=== PATIENT | female | born 1995 | race Caucasian/White ===

== ENCOUNTER 2016-04-12 14:19 | Emergency (ER) | payer OTHER ==
[~2016-04-12 14:19] MED LIST: BENZ200C39 PO; NAPR550T PO; PNV1TABL25 PO
[2016-04-12 14:20] VITALS: BP 115/72
[2016-04-12] MEDS ORDERED: AMOX500C PO (15:35)
[2016-04-12] MEDS ORDERED: HYDR15SO4 PO (15:35)
--- NOTE | 2016-04-12 15:35 | PHYS DOC ---
Past Medical History Past Medical History: No Pertinent History Past Surgical History: No Surgical History Additional Past Surgical Histo: oral Alcohol Use: Occasionally Drug Use: None Adult General Chief Complaint Chief Complaint: SORE THROAT [facility] HPI Patient is a 20 year old female with complaint of atraumatic sore throat for the past week. Patient denies any direct contact with anyone with strep or mononucleosis. She denies any antibiotic use in the past 30 days. Of incidental note, patient complains of chronic back pain is been progressive over the past 6 months. Reports this is atraumatic. Patient states that she has not followed up with a primary care doctor or orthopedic doctor since that period of time. Review of Systems Review of Systems Constitutional: Denies fever or chills [] Eyes: Denies change in visual acuity, redness, or eye pain [] HENT: Denies nasal congestion or sore throat [] Respiratory: Denies cough or shortness of breath [] Cardiovascular: No additional information not addressed in HPI [] GI: Denies abdominal pain, nausea, vomiting, bloody stools or diarrhea [] : Denies dysuria or hematuria [] Musculoskeletal: Denies back pain or joint pain [] Integument: Denies rash or skin lesions [] Neurologic: Denies headache, focal weakness or sensory changes [] Endocrine: Denies polyuria or polydipsia [] Allergies Allergies Allergies Coded Allergies Type Severity Reaction Last Updated Verified No Known Drug Allergies 08/13/14 No Physical Exam Physical Exam Constitutional: Well developed, well nourished, no acute distress, non-toxic appearance. [] HENT: Normocephalic, atraumatic, bilateral external ears normal, oropharynx moist, no oral exudates, nose normal. There is no hot potato speech or trismus. Posterior oropharynx is hyperemic. There are exudative plaques to the right tonsil. There is minimal tonsillar swelling. There is no peritonsillar swelling or uvular Eyes: PERRLA, EOMI, conjunctiva normal, no discharge. [] Neck: Normal range of motion, no tenderness, supple, no stridor. There is no meningismus. There is bilateral anterior cervical lymphadenopathy. Cardiovascular:Heart rate regular rhythm, no murmur [] Lungs & Thorax: Bilateral breath sounds clear to auscultation [] Abdomen: Bowel sounds normal, soft, no tenderness, no masses, no pulsatile masses. [] Skin: Warm, dry, no erythema, no rash. [] Back: No tenderness, no CVA tenderness. [] Extremities: No tenderness, no cyanosis, no clubbing, ROM intact, no edema. [] Neurologic: Alert and oriented X 3, normal motor function, normal sensory function, no focal deficits noted. [] Psychologic: Affect normal, judgement normal, mood normal. [] Current Patient Data Vital Signs Vital Signs Date Time Temp Pulse Resp B/P Pulse Ox O2 Delivery O2 Flow Rate FiO2 04/12/16 14:20 97.6 78 18 100 Room Air 97.6 EKG EKG [] Radiology/Procedures Radiology/Procedures [] Course & Med Decision Making Course & Med Decision Making Pertinent Labs and Imaging studies reviewed. (See chart for details) [] Dragon Disclaimer Dragon Disclaimer This electronic medical record was generated, in whole or in part, using a voice recognition dictation system. Departure Departure Impression: Primary Impression: Strep pharyngitis Additional Impression: Chronic back pain Disposition: HOME, SELF-CARE Condition: GOOD Referrals: NO PCP (PCP) Patient Instructions: Chronic Back Pain, Strep Throat, [id number] Additional Instructions: 1. Take the medication as prescribed. 2. Review the discharge instructions for reasons to return to the emergency room. 3. Use the pamphlet provided for assistance in finding a primary care doctor to address your medical concerns. Scripts Hydrocodone Bit/Acetaminophen (Hydrocodone-Apap 7.5-325/15 Soln )15 Ml Cuoryxsi20 Ml PO PRN Q6HRS PRN PAIN #120 ML Ref 0 Prov:ALVERTO WEBER 04/12/16 Amoxicillin 500 Mg Capsule1 Cap PO TID #30 CAP Prov:ALVERTO WEBER 04/12/16 Problem Qualifiers ALVERTO WEBER Apr 12, 2016 15:35
[2016-04-13 08:18] LABS: NEGATIVE OBC STREP NEG; POSITIVE OBC STREP POS
== END 2016-04-12 15:44 | disposition home or self-care (01) ==
LOC: ER 14:19
DX: J02.0 Streptococcal pharyngitis (principal); G89.29 Other chronic pain; M54.9 Dorsalgia, unspecified
CPT/HCPCS: 87880; 99283

== ENCOUNTER 2016-05-30 15:18 | Emergency (ER) | payer OTHER ==
[~2016-05-30] VITALS: Ht 157.5 cm; Wt 45.4 kg
[~2016-05-30 15:18] MED LIST changes: +AMOX500C PO; +HYDR15SO4 PO
[2016-05-30 15:37] VITALS: BP 113/60
--- NOTE | 2016-05-30 15:56 | PHYS DOC ---
Past Medical History Past Medical History: No Pertinent History, Asthma Past Surgical History: No Surgical History Additional Past Surgical Histo: oral Alcohol Use: Occasionally Drug Use: None Adult General Chief Complaint Chief Complaint: Congestion HPI HPI Patient is a 20 year old female presents emergency room today with a 4 day history of nasal congestion, nonproductive cough, subjective fevers and chills and body aches. Patient denies any ill contacts with similar symptoms. She denies hospitalization, foreign travel or antibiotic use within the past 90 days. Patient denies any history of heart or lung disease. Patient states she is a nonsmoker. Review of Systems Review of Systems Constitutional: Denies fever or chills [] Eyes: Denies change in visual acuity, redness, or eye pain [] HENT: Denies nasal congestion or sore throat [] Respiratory: Denies cough or shortness of breath [] Cardiovascular: No additional information not addressed in HPI [] GI: Denies abdominal pain, nausea, vomiting, bloody stools or diarrhea [] : Denies dysuria or hematuria [] Musculoskeletal: Denies back pain or joint pain [] Integument: Denies rash or skin lesions [] Neurologic: Denies headache, focal weakness or sensory changes [] Endocrine: Denies polyuria or polydipsia [] Current Medications Current Medications Current Medications Medications (Trade) Dose Ordered Sig/Norbert Start Time Stop Time Status Last Admin Dose Admin Ibuprofen (Motrin) 600 mg 1X ONCE 05/30/16 16:15 05/30/16 16:16 DC 05/30/16 16:09 600 MG Allergies Allergies Allergies Coded Allergies Type Severity Reaction Last Updated Verified No Known Drug Allergies 08/13/14 No Physical Exam Physical Exam Constitutional: Well developed, well nourished, no acute distress, non-toxic appearance. HENT: Normocephalic, atraumatic, bilateral external ears normal, oropharynx moist, no oral exudates, scant clear rhinorrhea with boggy nasal mucosa.. Eyes: PERRLA, EOMI, conjunctiva normal, no discharge. [] Neck: Normal range of motion, no tenderness, supple, no stridor. There is no meningismus. There is bilateral anterior and posterior cervical lymphadenopathy. Cardiovascular:Heart rate 98 with regular rhythm, no murmur Lungs & Thorax: There is no respiratory distress respiratory fatigue. Lung sounds are clear to auscultation bilaterally. Abdomen: Bowel sounds normal, soft, no tenderness, no masses, no pulsatile masses. [] Skin: Warm, dry, no erythema, no rash. Back: No tenderness, no CVA tenderness. [] Extremities: No tenderness, no cyanosis, no clubbing, ROM intact, no edema. [] Neurologic: Alert and oriented X 3, normal motor function, normal sensory function, no focal deficits noted. [] Psychologic: Affect normal, judgement normal, mood normal. [] Current Patient Data Vital Signs Vital Signs Date Time Temp Pulse Resp B/P Pulse Ox O2 Delivery O2 Flow Rate FiO2 05/30/16 15:37 99.4 106 18 113/60 98 Room Air 99.4 Lab Values Laboratory Tests Test 05/30/16 15:37 Influenza Type A Antigen Negative (NEGATIVE) Influenza Type B Antigen Positive (NEGATIVE) EKG EKG [] Radiology/Procedures Radiology/Procedures [] Course & Med Decision Making Course & Med Decision Making Pertinent Labs and Imaging studies reviewed. (See chart for details) [] Dragon Disclaimer Dragon Disclaimer This electronic medical record was generated, in whole or in part, using a voice recognition dictation system. Departure Departure Impression: Primary Impression: Influenza Disposition: HOME, SELF-CARE Condition: GOOD Referrals: NO PCP (PCP) Patient Instructions: Influenza, Adult, [id number] Additional Instructions: 1. You tested positive for influenza B. 2. Review the discharge instructions for self-care and reasons to return the emergency department. 3. Take the medication as prescribed. 4. Use the pamphlet provided for assistance in finding a primary care doctor to address your medical concerns. Scripts Hydrocodone/Chlorphen Polis (Tussionex Pennkinetic Susp)480 Ml Pallavi.[id number] Ml PO BID COUGH #120 ML Prov:ALVERTO WEBER 05/30/16 ALVERTO WEBER May 30, 2016 15:56
[2016-05-30] MEDS ORDERED: IBUPROFEN 600 MG TABLET. PO ONE (16:15)
[2016-05-30 16:21] LABS: OBC FLU VALID
[2016-05-30] MEDS ORDERED: HYDR115S2 PO (16:33)
== END 2016-05-30 16:34 | disposition home or self-care (01) ==
LOC: ER 15:18
DX: J10.1 Influenza due to other identified influenza virus with other respiratory manifestations (principal); J45.909 Unspecified asthma, uncomplicated
CPT/HCPCS: 87804; 99284

== ENCOUNTER 2016-07-12 20:58 | Emergency (ER) | payer OTHER ==
[~2016-07-12] VITALS: Ht 157.5 cm; Wt 45.4 kg
[~2016-07-12 20:58] MED LIST changes: +HYDR115S2 PO
[2016-07-12 21:08] VITALS: BP 105/57
--- NOTE | 2016-07-12 21:27 | PHYS DOC ---
Past Medical History Past Medical History: No Pertinent History Past Surgical History: No Surgical History Additional Past Surgical Histo: oral Additional Information: 1 PACK/2 WKS Alcohol Use: None Drug Use: None Adult General Chief Complaint Chief Complaint: WRIST PAIN [facility] HPI Patient is a 20 year old female presents emergency Department today with complaint of right wrist pain secondary to a slip and fall at home at approximately 4 PM today. Patient denies striking her head, loss of consciousness or other injuries. She denies any previous fractures or dislocations to right wrist. She denies any history of bone forming disorders. Patient is right-hand dominant. Review of Systems Review of Systems Constitutional: Denies fever or chills [] Eyes: Denies change in visual acuity, redness, or eye pain [] HENT: Denies nasal congestion or sore throat [] Respiratory: Denies cough or shortness of breath [] Cardiovascular: No additional information not addressed in HPI [] GI: Denies abdominal pain, nausea, vomiting, bloody stools or diarrhea [] : Denies dysuria or hematuria [] Musculoskeletal: Denies back pain or joint pain [] Integument: Denies rash or skin lesions [] Neurologic: Denies headache, focal weakness or sensory changes [] Endocrine: Denies polyuria or polydipsia [] Allergies Allergies Allergies Coded Allergies Type Severity Reaction Last Updated Verified No Known Drug Allergies 08/13/14 No Physical Exam Physical Exam Constitutional: Well developed, well nourished, no acute distress, non-toxic appearance. [] HENT: Normocephalic, atraumatic, bilateral external ears normal, oropharynx moist, no oral exudates, nose normal. [] Eyes: PERRLA, EOMI, conjunctiva normal, no discharge. [] Neck: Normal range of motion, no tenderness, supple, no stridor. [] Cardiovascular:Heart rate regular rhythm, no murmur [] Lungs & Thorax: Bilateral breath sounds clear to auscultation [] Abdomen: Bowel sounds normal, soft, no tenderness, no masses, no pulsatile masses. [] Skin: Warm, dry, no erythema, no rash. [] Back: No tenderness, no CVA tenderness. [] Extremities: Right hand is normal in appearance and nontender to palpation. Right wrist with a small amount of swelling and a contusion overlying the distal ulna/ulnar styloid region. There is no palpable instability or crepitus. Patient has no tenderness anywhere else in her wrist. Patient's right forearm, elbow, upper arm and shoulder are unaffected. Right hand is neurovascularly intact with capillary refill less than 2 seconds. Neurologic: Alert and oriented X 3, normal motor function, normal sensory function, no focal deficits noted. [] Psychologic: Affect normal, judgement normal, mood normal. [] Current Patient Data Vital Signs Vital Signs Date Time Temp Pulse Resp B/P Pulse Ox O2 Delivery O2 Flow Rate FiO2 07/12/16 21:08 98.1 81 18 99 Room Air 98.1 EKG EKG [] Radiology/Procedures Radiology/Procedures 3 views of patient's right wrist were performed with adequate technique. There is no evidence of acute bony injury or dislocation. Course & Med Decision Making Course & Med Decision Making Pertinent Labs and Imaging studies reviewed. (See chart for details) [] Dragon Disclaimer Dragon Disclaimer This electronic medical record was generated, in whole or in part, using a voice recognition dictation system. Departure Departure Impression: Primary Impression: Wrist sprain Disposition: 01 HOME, SELF-CARE Condition: GOOD Referrals: NO PCP (PCP) Patient Instructions: Joint Sprain Additional Instructions: 1. The x-rays of your wrist today are normal. 2. Wear the splint during periods of activity. You can take it off her personal hygiene and periods of rest. Do this for the next 5-7 days. 3. Take ibuprofen every 8 hours or naproxen every 12 hours for the discomfort. You can apply ice every 2 hours for 20-30 minutes at a time. 4. Contact primary care doctor's office in the morning to schedule follow-up appointment. ALVERTO WEBER Jul 12, 2016 21:27
[2016-07-12] MEDS ORDERED: IBUPROFEN 600 MG TABLET. PO ONE (22:15)
--- NOTE | 2016-07-13 08:14 | RAD ---
Right wrist, 3 views, 07/12/2016: History: Fall, pain No fracture or dislocation is identified. There is mild soft tissue swelling. IMPRESSION: No acute bony abnormality is detected.
== END 2016-07-12 22:01 | disposition home or self-care (01) ==
LOC: ER 20:58
DX: S63.501A Unspecified sprain of right wrist, initial encounter (principal); F17.200 Nicotine dependence, unspecified, uncomplicated; W01.0XXA Fall on same level from slipping, tripping and stumbling without subsequent striking against object, initial encounter; Y93.89 Activity, other specified; Y92.009 Unspecified place in unspecified non-institutional (private) residence as the place of occurrence of the external cause; Y99.8 Other external cause status
CPT/HCPCS: 29125; 73110; 99284-25

== ENCOUNTER 2016-08-29 12:16 | Emergency (ER) | payer OTHER ==
[~2016-08-29] VITALS: Ht 157.5 cm; Wt 45.4 kg
[2016-08-29 12:39] VITALS: BP 96/62
[2016-08-29] MEDS ORDERED: AMOX500C PO (13:01)
[2016-08-29] MEDS ORDERED: TRAM-29 PO (13:01)
--- NOTE | 2016-08-29 13:01 | PHYS DOC ---
Past Medical History Past Medical History: No Pertinent History Past Surgical History: Other Additional Past Surgical Histo: oral Alcohol Use: None Drug Use: None Adult General Chief Complaint Chief Complaint: DENTAL PROBLEM HPI HPI Patient is a 20 year old female presents emergency department stating that she is having bilateral lower back dental pain. She states that she has had some nausea feeling and felt as though she hasn't been feeling well. She denies any fever, chills or any nausea vomiting. She states the pain is been going on for the approximately one week where she has been taking Tylenol and ibuprofen with no relief. Patient states that she does not have a dentist to follow-up with. Patient states last menstrual period was approximately one month ago. Review of Systems Review of Systems Constitutional: Denies fever or chills [] Eyes: Denies change in visual acuity, redness, or eye pain [] HENT: Denies nasal congestion or sore throat. C/o bilateral lower back dental pain Respiratory: Denies cough or shortness of breath [] Cardiovascular: No additional information not addressed in HPI [] GI: Denies abdominal pain, nausea, vomiting, bloody stools or diarrhea [] : Denies dysuria or hematuria [] Musculoskeletal: Denies back pain or joint pain [] Integument: Denies rash or skin lesions [] Neurologic: Denies headache, focal weakness or sensory changes [] Endocrine: Denies polyuria or polydipsia [] Allergies Allergies Allergies Coded Allergies Type Severity Reaction Last Updated Verified No Known Drug Allergies 08/13/14 No Physical Exam Physical Exam Constitutional: Well developed, well nourished, no acute distress, non-toxic appearance. [] HENT: Normocephalic, atraumatic, bilateral external ears normal, oropharynx moist, no oral exudates, nose normal. Bilateral tympanic membranes appear to be normal. Throat with no erythematous no redness noted exudate noted. Patient appears to have abscesses on bilateral lower back areas. Eyes: PERRLA, EOMI, conjunctiva normal, no discharge. [] Neck: Normal range of motion, no tenderness, supple, no stridor. [] Cardiovascular:Heart rate regular rhythm, no murmur [] Lungs & Thorax: Bilateral breath sounds clear to auscultation [] Skin: Warm, dry, no erythema, no rash. [] Back: No tenderness Extremities: No tenderness, no cyanosis, no clubbing, ROM intact, no edema. [] Neurologic: Alert and oriented X 3, normal motor function, normal sensory function, no focal deficits noted. [] Psychologic: Affect normal, judgement normal, mood normal. [] Current Patient Data Vital Signs Vital Signs Date Time Temp Pulse Resp B/P (MAP) Pulse Ox O2 Delivery O2 Flow Rate FiO2 08/29/16 12:39 98.5 71 16 98 Room Air 98.5 EKG EKG [] Radiology/Procedures Radiology/Procedures [] Course & Med Decision Making Course & Med Decision Making Pertinent Labs and Imaging studies reviewed. (See chart for details) Patient will be provided with Ultram and amoxicillin. She was also instructed continue to use ibuprofen. She was instructed Ultram will cause drowsiness do not take any be alert and oriented. She'll be provided with a dental list. Patient was instructed to use warm salt water rinses 4 times a day. Patient will be discharged home in stable condition signs symptoms to return back to emergency department as been provided. [] Dragon Disclaimer Dragon Disclaimer This electronic medical record was generated, in whole or in part, using a voice recognition dictation system. Departure Departure Impression: Primary Impression: Dental abscess Additional Impression: Pain, dental Disposition: 01 HOME, SELF-CARE Condition: STABLE Referrals: NO PCP (PCP) Patient Instructions: Dental Abscess, Dental Pain, [id number] Additional Instructions: Activity as tolerated. Medication as prescribed. Ibuprofen 600 mg every 8 hours with food stop taking few develop an upset stomach. Ultram will cause drowsiness do not take any be alert and oriented. Warm salt water mouth rinses 4 times a day. Follow-up with the dentist in the next week. Return back to emergency prior signs symptoms of become worse. Scripts Tramadol Hcl (ULTRAM) 50 Mg Tablet 1 TAB PO Q6HRS, #15 TAB Prov: JORY BELTRAN APRN 08/29/16 Amoxicillin (AMOXICILLIN) 500 Mg Capsule 1 CAP PO QID, #40 CAP Prov: JORY BELTRAN [employer]PER [employer]ER 08/29/16 Problem Qualifiers JORY BELTRAN APRN August 29, 2016 13:01
== END 2016-08-29 13:18 | disposition home or self-care (01) ==
LOC: ER 13:00
DX: K04.7 Periapical abscess without sinus (principal)
CPT/HCPCS: 99283

== ENCOUNTER 2016-09-04 19:54 | Emergency (ER) | payer OTHER ==
[~2016-09-04] VITALS: Ht 157.5 cm; Wt 45.4 kg
[~2016-09-04 19:54] MED LIST changes: +TRAM-29 PO
[2016-09-04 20:15] VITALS: BP 109/53
[2016-09-04] MEDS ORDERED: METHOCARBAMOL 500 MG TABLET PO STA (20:27)
[2016-09-04] MEDS ORDERED: traMADol 50 MG TABLET PO ONE (20:45)
[2016-09-04] MEDS ORDERED: TRAM-29 PO (21:03)
[2016-09-04] MEDS ORDERED: METH-37 PO (21:03)
--- NOTE | 2016-09-04 21:03 | PHYS DOC ---
Past Medical History Past Medical History: No Pertinent History Past Surgical History: Other Additional Past Surgical Histo: oral Alcohol Use: None Drug Use: None Adult General Chief Complaint Chief Complaint: LOWER BACK PAIN OR INJURY HPI HPI Patient is a 20 year old female with no significant medical history who presents today with mild intermittent low back pain that has been going on for 1 -1/2 years after an epidural when she had a baby. Patient denies any trauma. Denies any pain radiating to bilateral lower extremities. Denies any loss of bowel bladder function. Review of Systems Review of Systems Constitutional: Denies fever or chills [] Eyes: Denies change in visual acuity, redness, or eye pain [] GI: Denies abdominal pain, nausea, vomiting, bloody stools or diarrhea [] : Denies dysuria or hematuria [] Musculoskeletal: Low back pain Integument: Denies rash or skin lesions [] Neurologic: Denies headache, focal weakness or sensory changes [] Endocrine: Denies polyuria or polydipsia [] Current Medications Current Medications Current Medications Medications (Trade) Dose Ordered Sig/Norbert Start Time Stop Time Status Last Admin Dose Admin Methocarbamol (Robaxin) 500 mg 1X STAT 09/04/16 20:27 09/04/16 20:31 DC Tramadol HCl (Ultram) 50 mg 1X ONCE 09/04/16 20:45 09/04/16 20:46 DC Allergies Allergies Allergies Coded Allergies Type Severity Reaction Last Updated Verified No Known Drug Allergies 08/13/14 No Physical Exam Physical Exam Constitutional: Well developed, well nourished, no acute distress, non-toxic appearance. [] HENT: Normocephalic, atraumatic, bilateral external ears normal, oropharynx moist, no oral exudates, nose normal. [] Abdomen: Bowel sounds normal, soft, no tenderness, no masses, no pulsatile masses. [] Skin: Warm, dry, no erythema, no rash. [] Back: Diffuse paraspinal muscle tenderness bilateral low lumbar region, no midline lumbar spine tenderness, no CVA tenderness. [] Extremities: No tenderness, no cyanosis, no clubbing, ROM intact, no edema. [] Neurologic: Alert and oriented X 3, normal motor function, normal sensory function, no focal deficits noted. [] Psychologic: Affect normal, judgement normal, mood normal. [] Current Patient Data Vital Signs Vital Signs Date Time Temp Pulse Resp B/P (MAP) Pulse Ox O2 Delivery O2 Flow Rate FiO2 09/04/16 20:15 98.1 66 18 98 Room Air 98.1 EKG EKG [] Radiology/Procedures Radiology/Procedures [] Course & Med Decision Making Course & Med Decision Making Pertinent Labs and Imaging studies reviewed. (See chart for details) Patient is in the ED with exacerbation of chronic low back pain that she's had for 1-1/2 years after an epidural. Patient was discharged with Robaxin and Ultram. Follow-up with her own PCP in 1-2 weeks. Dragon Disclaimer Dragon Disclaimer This electronic medical record was generated, in whole or in part, using a voice recognition dictation system. Departure Departure Impression: Primary Impression: Chronic back pain Disposition: HOME, SELF-CARE Condition: STABLE Referrals: NO PCP (PCP) Establish care with a primary care doctor and follow-up Patient Instructions: Back Pain, Adult Additional Instructions: You were seen for ongoing back pain. We highly recommend you establish care with a primary care doctor and follow-up. Take the prescribed medicines as needed. Scripts Methocarbamol (ROBAXIN) 500 Mg Tablet 1 TAB PO TID, #30 TAB Prov: KIRA ACKERMAN APRN 09/04/16 Tramadol Hcl (ULTRAM) 50 Mg Tablet 50 MG PO Q6H Y for PAIN, #30 TAB 0 Refills Prov: KIRA ACKERMAN APRN 09/04/16 Problem Qualifiers Primary Impression: Chronic back pain Back pain location: low back pain Back pain laterality: bilateral Sciatica presence: without sciatica Qualified Codes: M54.5 - Low back pain; G89.29 - Other chronic pain KIRA ACKERMAN APRN September 04, 2016 21:03
== END 2016-09-04 21:06 | disposition home or self-care (01) ==
LOC: ER 19:54
DX: G89.29 Other chronic pain (principal); M54.5 Low back pain
CPT/HCPCS: 99283

== ENCOUNTER 2016-09-21 11:51 | Emergency (ER) | payer OTHER ==
[~2016-09-21] VITALS: Ht 157.5 cm; Wt 45.8 kg
[~2016-09-21 11:51] MED LIST changes: -BENZ200C39 PO; +BENZ200C47 PO; +METH-37 PO; -TRAM-29 PO; +TRAM-48 PO
[2016-09-21 12:05] VITALS: BP 104/54
[2016-09-21] MEDS ORDERED: CYCL10TA2 PO (12:34)
--- NOTE | 2016-09-21 12:34 | PHYS DOC ---
Past Medical History Past Medical History: Other Additional Past Medical Histor: CHRONIC LOWER BACK PAIN Past Surgical History: Other Additional Past Surgical Histo: oral Alcohol Use: None Drug Use: None Adult General Chief Complaint Chief Complaint: LOWER BACK PAIN OR INJURY [facility] HPI Patient is a 20 year old female presents emergency department stating that she is having left lower back pain and discomfort. She states states that she feels that her back is locking up on her occasionally. She states that it has increased pain when she bends over and lift things. She states that she was [place] [facility] [place] nonsteroidal anti-inflammatories. She states that she doesn't feel that this is doing any good for her. She denies any numbness or tingling down to her lower extremities. She denies any loss of bowel or bladder. Patient has driven herself here today. Patient denies any trauma or injury. Review of Systems Review of Systems Constitutional: Denies fever or chills [] Eyes: Denies change in visual acuity, redness, or eye pain [] HENT: Denies nasal congestion or sore throat [] Respiratory: Denies cough or shortness of breath [] Cardiovascular: No additional information not addressed in HPI [] GI: Denies abdominal pain, nausea, vomiting, bloody stools or diarrhea [] : Denies dysuria or hematuria [] Musculoskeletal: Low back pain and discomfort no joint pain Integument: Denies rash or skin lesions [] Neurologic: Denies headache, focal weakness or sensory changes [] Endocrine: Denies polyuria or polydipsia [] Allergies Allergies Allergies Coded Allergies Type Severity Reaction Last Updated Verified No Known Drug Allergies 08/13/14 No Physical Exam Physical Exam Constitutional: Well developed, well nourished, no acute distress, non-toxic appearance. [] HENT: Normocephalic, atraumatic, bilateral external ears normal, oropharynx moist, no oral exudates, nose normal. [] Eyes: PERRLA, EOMI, conjunctiva normal, no discharge. [] Neck: Normal range of motion, no tenderness, supple, no stridor. [] Cardiovascular:Heart rate regular rhythm, no murmur [] Lungs & Thorax: Bilateral breath sounds clear to auscultation [] Skin: Warm, dry, no erythema, no rash. [] Back: No thoracic or lumbar spine tenderness, she was noted to have tenderness on the left paraspinal area. No CVA tenderness. Patient was able to do straight legs raises with no difficulty. Extremities: No tenderness, no cyanosis, no clubbing, ROM intact, no edema. Peripheral pulses 2+ cap refill brisk less than 2 seconds. Neurologic: Alert and oriented X 3, normal motor function, normal sensory function, no focal deficits noted. Patient able to ambulate with a good steady gait. Psychologic: Affect normal, judgement normal, mood normal. [] Current Patient Data Vital Signs Vital Signs Date Time Temp Pulse Resp B/P (MAP) Pulse Ox O2 Delivery O2 Flow Rate FiO2 09/21/16 12:05 98.2 95 14 99 Room Air 98.2 EKG EKG [] Radiology/Procedures Radiology/Procedures [] Course & Med Decision Making Course & Med Decision Making Pertinent Labs and Imaging studies reviewed. (See chart for details) Spoke with patient in regards to following up with the primary care so she can get physical therapy. Patient will be provided with Flexeril which she was instructed will cause drowsiness do not take any be alert and oriented. Patient was also instructed to continue to use the nonsteroidal anti-inflammatories which she is her to go prescribed. Patient will be discharged home in stable condition signs and symptoms to return back to emergency department as been provided. [] Dragon Disclaimer Dragon Disclaimer This electronic medical record was generated, in whole or in part, using a voice recognition dictation system. Departure Departure Impression: Primary Impression: Chronic back pain Disposition: 01 HOME, SELF-CARE Condition: STABLE Referrals: NO PCP (PCP) Patient Instructions: Back Exercises, [id number], Back Exercises, Generic, SportsMed, Back Injury Prevention, [id number], Chronic Back Pain Additional Instructions: Activity as tolerated No lifting over 5 pounds Continue to use the NSAID that you have been provided Flexeril will cause drowsiness do not take if you need to be alert and oriented Followup with your primary care provider in 3-5 days Return to emergency department as needed for signs and symptoms that become worse. Scripts Cyclobenzaprine Hcl (CYCLOBENZAPRINE HCL) 10 Mg Tablet 10 MG PO TID, #15 TAB Prov: JORY BELTRAN APRN 09/21/16 JORY BELTRAN APRN Sep 21, 2016 12:34
== END 2016-09-21 12:51 | disposition home or self-care (01) ==
LOC: ER 11:51
DX: G89.29 Other chronic pain (principal); M54.5 Low back pain
CPT/HCPCS: 99281; 99282

== ENCOUNTER 2016-10-23 20:25 | Emergency (ER) | payer OTHER ==
[~2016-10-23] VITALS: Ht 157.5 cm; Wt 45.4 kg
[~2016-10-23 20:25] MED LIST changes: +CYCL10TA2 PO
[2016-10-23 20:37] VITALS: BP 109/58
[2016-10-23] MEDS ORDERED: TRAM-48 PO (21:06)
--- NOTE | 2016-10-23 21:06 | PHYS DOC ---
Past Medical History Past Medical History: Other Additional Past Medical Histor: CHRONIC LOWER BACK PAIN Past Surgical History: Other Additional Past Surgical Histo: oral Alcohol Use: None Drug Use: None Adult General Chief Complaint Chief Complaint: HAND PROBLEM HPI HPI Patient is a 21 year old female with right hand contusion after smashing her right hand in between shopping carts at work. Review of Systems Review of Systems Constitutional: Denies fever or chills [] Eyes: Denies change in visual acuity, redness, or eye pain [] Musculoskeletal: right hand contusion Integument: Denies rash or skin lesions [] Neurologic: Denies headache, focal weakness or sensory changes [] Endocrine: Denies polyuria or polydipsia [] Allergies Allergies Allergies Coded Allergies Type Severity Reaction Last Updated Verified No Known Drug Allergies 08/13/14 No Physical Exam Physical Exam Constitutional: Well developed, well nourished, no acute distress, non-toxic appearance. [] Extremities: Right hand with a small contusion overlying the middle finger and ring finger metacarpals. Mild tenderness over the contusion. Full range of motion to the right hand fingers. Adequate radial medial and ulnar sensation to the right fingers. +2 right radial pulse. Cap refill less than 2 seconds the right fingers. Neurologic: Alert and oriented X 3, normal motor function, normal sensory function, no focal deficits noted. [] Psychologic: Affect normal, judgement normal, mood normal. [] Current Patient Data Vital Signs Vital Signs Date Time Temp Pulse Resp B/P (MAP) Pulse Ox O2 Delivery O2 Flow Rate FiO2 10/23/16 20:37 98.5 85 20 98 Room Air 98.5 EKG EKG [] Radiology/Procedures Radiology/Procedures [] Course & Med Decision Making Course & Med Decision Making Pertinent Labs and Imaging studies reviewed. (See chart for details) Patient is in the ED with right hand contusion after her hand got smashed in between a shopping cart, right hand x-rays interpreted by Dr. Anderson negative for any acute findings. Patient was discharged with Ultram for pain. Ice elevation encouraged. Follow-up with orthopedic doctor in a week if pain continues. Dragon Disclaimer Dragon Disclaimer This electronic medical record was generated, in whole or in part, using a voice recognition dictation system. Departure Departure Impression: Primary Impression: Contusion of right hand Disposition: 01 HOME, SELF-CARE Condition: STABLE Referrals: NO PCP (PCP) ROSSANA POSEY MD Follow up in one week Patient Instructions: Contusion Additional Instructions: You were seen for right hand contusion. Ice and elevate the extremity. Wear an Khang wrap as needed and tolerated. Take the prescribed medicines as needed for pain. Follow-up with your own doctor or the provided doctor in 1-2 weeks. Scripts Tramadol Hcl (ULTRAM) 50 Mg Tablet 1 TAB PO Q6HRS, #30 TAB Prov: KIRA ACKERMAN APRN 10/23/16 Problem Qualifiers Primary Impression: Contusion of right hand Encounter type: initial encounter Qualified Codes: S60.221A - Contusion of right hand, initial encounter KIRA ACKERMAN APRN Oct 23, 2016 21:06
--- NOTE | 2016-10-24 08:26 | RAD ---
Right hand 3 views. History: Trauma, jammed third finger pain, swelling at MCP joint 3 views were taken of the right hand. There is not evidence of an acute fracture or osseous abnormality. Impression: 1. No fracture is noted in the right hand.
== END 2016-10-23 21:15 | disposition home or self-care (01) ==
LOC: ER 20:25
DX: S60.221A Contusion of right hand, initial encounter (principal); G89.29 Other chronic pain; W23.0XXA Caught, crushed, jammed, or pinched between moving objects, initial encounter; Y93.89 Activity, other specified; Y99.0 Civilian activity done for income or pay; Y92.69 Other specified industrial and construction area as the place of occurrence of the external cause
CPT/HCPCS: 73130; 99284

== ENCOUNTER 2016-11-23 10:21 | Emergency (ER) | payer OTHER ==
[~2016-11-23] VITALS: Ht 157.5 cm; Wt 45.4 kg
[2016-11-23 10:27] VITALS: BP 104/58
[2016-11-23] MEDS ORDERED: TRAM-48 PO (10:44)
[2016-11-23] MEDS ORDERED: AMOX875T PO (10:44)
--- NOTE | 2016-11-23 10:44 | PHYS DOC ---
Past Medical History Past Medical History: Other Additional Past Medical Histor: CHRONIC LOWER BACK PAIN Past Surgical History: Other Additional Past Surgical Histo: oral Alcohol Use: None Drug Use: None Adult General Chief Complaint Chief Complaint: DENTAL PROBLEM HPI HPI Patient is a 21 year old female who presents with bilateral lower gum dental pain that began yesterday. Patient denies any fever or trismus. Review of Systems Review of Systems Constitutional: Denies fever or chills [] HENT: lower gum dental pain Musculoskeletal: Denies back pain or joint pain [] Integument: Denies rash or skin lesions [] Neurologic: Denies headache, focal weakness or sensory changes [] Allergies Allergies Allergies Coded Allergies Type Severity Reaction Last Updated Verified No Known Drug Allergies 08/13/14 No Physical Exam Physical Exam Constitutional: Well developed, well nourished, no acute distress, non-toxic appearance. [] HENT: Normocephalic, atraumatic, bilateral external ears normal, oropharynx moist, no oral exudates, nose normal. [] Scattered dental caries throughout her teeth. No gum erythema. Skin: Warm, dry, no erythema, no rash. [] Back: No tenderness, no CVA tenderness. [] Extremities: No tenderness, no cyanosis, no clubbing, ROM intact, no edema. [] Neurologic: Alert and oriented X 3, normal motor function, normal sensory function, no focal deficits noted. [] Psychologic: Affect normal, judgement normal, mood normal. [] EKG EKG [] Radiology/Procedures Radiology/Procedures [] Course & Med Decision Making Course & Med Decision Making Pertinent Labs and Imaging studies reviewed. (See chart for details) Patient is in the ED with dental pain. She has dental caries. Discharged with amoxicillin and tramadol. Follow-up with her dentist as soon as possible. [place] Disclaimer Dao Disclaimer This electronic medical record was generated, in whole or in part, using a voice recognition dictation system. Departure Departure Impression: Primary Impression: Dentalgia Additional Impression: Dental caries Disposition: 01 HOME, SELF-CARE Condition: STABLE Referrals: NO PCP (PCP) follow up with your dentist as soon as you can Patient Instructions: Dental Caries Additional Instructions: You were seen for dental pain and dental caries. Complete your antibiotics. Follow-up with the dentist in 1-2 weeks. Scripts Tramadol Hcl (ULTRAM) 50 Mg Tablet 1 TAB PO Q6HRS, #30 TAB Prov: KIRA ACKERMAN APRN 11/23/16 Amoxicillin (AMOXICILLIN) 875 Mg Tablet 1 TAB PO BID, #20 TAB Prov: KIRA ACKERMAN APRN 11/23/16 Problem Qualifiers KIRA ACKERMAN APRN Nov 23, 2016 10:44
== END 2016-11-23 10:46 | disposition home or self-care (01) ==
LOC: ER 10:21
DX: K08.89 Other specified disorders of teeth and supporting structures (principal); K02.9 Dental caries, unspecified; G89.29 Other chronic pain
CPT/HCPCS: 99283

== ENCOUNTER 2017-03-21 17:40 | Emergency (ER) | payer BC ==
[~2017-03-21] VITALS: Ht 157.5 cm; Wt 46.0 kg
[~2017-03-21 17:40] MED LIST changes: +AMOX1TAB61 PO; +AMOX875T PO; +NAPR-682 PO; -NAPR550T PO; +PRED-220 PO
[2017-03-21 18:09] VITALS: BP 101/61
--- NOTE | 2017-03-21 19:46 | PHYS DOC ---
Past Medical History Past Medical History: Other Additional Past Medical Histor: CHRONIC LOWER BACK PAIN Past Surgical History: No Surgical History, Other Additional Past Surgical Histo: oral Alcohol Use: None Drug Use: None Adult General Chief Complaint Chief Complaint: HAND PROBLEM HPI HPI Patient is a 21 year old female who presents with right hand contusion. Patient states her hand hit her truck car door. Review of Systems Review of Systems Constitutional: Denies fever or chills [] Musculoskeletal: right hand contusion Integument: Denies rash or skin lesions [] Neurologic: Denies headache, focal weakness or sensory changes [] All other systems were reviewed and found to be within normal limits, except as documented in this note. Allergies Allergies Allergies Coded Allergies Type Severity Reaction Last Updated Verified No Known Drug Allergies 08/13/14 No Physical Exam Physical Exam Constitutional: Well developed, well nourished, no acute distress, non-toxic appearance. [] Skin: Warm, dry, no erythema, no rash. [] Back: No tenderness, no CVA tenderness. [] Extremities: Right hand with mild soft tissue swelling and tenderness along the medial finger ring finger knuckles. Full range of motion to the right hand including flexion and extension of the fingers. Adequate radial medial and ulnar sensation to the right hand. +2 right radial pulse. Cap refill less than 2 seconds the right fingers. Neurologic: Alert and oriented X 3, normal motor function, normal sensory function, no focal deficits noted. [] Psychologic: Affect normal, judgement normal, mood normal. [] Current Patient Data Vital Signs Vital Signs Date Time Temp Pulse Resp B/P (MAP) Pulse Ox O2 Delivery O2 Flow Rate FiO2 03/21/17 18:09 98.3 72 18 99 Room Air 98.3 EKG EKG [] Radiology/Procedures Radiology/Procedures [] Course & Med Decision Making Course & Med Decision Making Pertinent Labs and Imaging studies reviewed. (See chart for details) Patient is in the ED with right hand contusion. Right hand x-rays interpreted by Dr. Cook are negative for any acute findings. Ice elevation encouraged. OTC pain relievers recommended. Follow-up with orthopedic doctor in one week. Dragon Disclaimer Dragon Disclaimer This electronic medical record was generated, in whole or in part, using a voice recognition dictation system. Departure Departure Impression: Primary Impression: Contusion of right hand Disposition: HOME, SELF-CARE Condition: STABLE Referrals: NO PCP (PCP) ELLEN GREEN MD follow up in one week Patient Instructions: Contusion, [id number] Additional Instructions: You were seen for right hand contusion. Ice elevate the extremity. Take over-the -counter pain relievers as needed. Follow-up with your own doctor or the provided doctor in 1-2 weeks. Scripts Acetaminophen (TYLENOL) 325 Mg Tablet 1-2 TAB PO Q6-8HRS Y for PAIN, #20 TAB 0 Refills Prov: KIRA ACKERMAN APRN 03/21/17 Problem Qualifiers Primary Impression: Contusion of right hand Encounter type: initial encounter Qualified Codes: S60.221A - Contusion of right hand, initial encounter KIRA ACKERMAN APRN Mar 21, 2017 19:46
[2017-03-21] MEDS ORDERED: ACET325T9 PO (20:11)
--- NOTE | 2017-03-22 08:44 | RAD ---
Right hand, 3 views, 03/21/2017: History: Hand injury No fracture or dislocation is identified. There is mild soft tissue swelling over the dorsum of the hand in the distal metacarpal region. IMPRESSION: No acute bony abnormality is detected.
[2017-03-22] MEDS ORDERED: HYDR-971 PO (09:00)
== END 2017-03-21 20:10 | disposition home or self-care (01) ==
LOC: ER 17:40
DX: S60.221A Contusion of right hand, initial encounter (principal); G89.29 Other chronic pain; W22.8XXA Striking against or struck by other objects, initial encounter; Y93.89 Activity, other specified; Y92.89 Other specified places as the place of occurrence of the external cause; Y99.8 Other external cause status
CPT/HCPCS: 73130; 99284

== ENCOUNTER 2017-03-22 07:02 | Emergency (ER) | payer BC ==
[~2017-03-22 07:02] MED LIST changes: +ACET325T9 PO
--- NOTE | 2017-03-22 08:12 | PHYS DOC ---
Past Medical History Past Medical History: Asthma, Other Additional Past Medical Histor: CHRONIC LOWER BACK PAIN, Irreg HR.(informed in 2014) Past Surgical History: Other Additional Past Surgical Histo: oral Additional Information: Quit 2 months ago (January 2017- was smoking 1PPD.) Alcohol Use: None Drug Use: None Adult General Chief Complaint Chief Complaint: HAND PROBLEM [facility] HPI Patient is a 21 year old female who presents with pain to her right hand. She slammed her hand in a trunk. She was seen in this emergency department yesterday. Her x-rays were clear yesterday and she was discharged with a hand contusion. She states that the pain has increased overnight and it feels stiff to open and close her hand. Review of Systems Review of Systems Constitutional: Denies fever or chills [ Respiratory: Denies cough or shortness of breath [] Cardiovascular: No additional information not addressed in HPI [] Musculoskeletal: See history of present illness Integument: Denies rash or skin lesions [] Neurologic: Denies headache, focal weakness or sensory changes [] Endocrine: Denies polyuria or polydipsia [] All other systems were reviewed and found to be within normal limits, except as documented in this note. Allergies Allergies Allergies Coded Allergies Type Severity Reaction Last Updated Verified No Known Drug Allergies 08/13/14 No Physical Exam Physical Exam Constitutional: Well developed, well nourished, no acute distress, non-toxic appearance. [] Cardiovascular:Heart rate regular rhythm, no murmur [] Lungs & Thorax: Bilateral breath sounds clear to auscultation [] Skin: Warm, dry, no erythema, no rash. 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 [] Psychologic: Affect normal, judgement normal, mood normal. [] Current Patient Data Vital Signs Vital Signs Date Time Temp Pulse Resp B/P (MAP) Pulse Ox O2 Delivery O2 Flow Rate FiO2 03/22/17 07:19 97.1 85 18 100 Room Air 97.1 EKG EKG [] Radiology/Procedures Radiology/Procedures [] PATIENT: FRANCISCO MEDRANO ACCOUNT: [id number] : 1995 LOCATION: ER AGE: 21 SEX: F EXAM STATUS: REG ER ORD. PHYSICIAN: UDAY MUNSON APRN REASON: smashed by trunk door PROCEDURE: HAND RIGHT 3V Right hand, 3 views, 03/22/2017: History: Injury, pain No fracture or dislocation is identified. There is mild soft tissue swelling over the dorsum of the hand in the metacarpal region. IMPRESSION: No acute bony abnormality is detected. DICTATED and SIGNED BY: BRANDON LIU MD DATE: 03/22/17825 CC: UDAY MUNSON APRN; NO PCP ~ Course & Med Decision Making Course & Med Decision Making Pertinent Labs and Imaging studies reviewed. (See chart for details) []1. Contusion The wrist was placed in an immobilizer to give support to that hand. You have been placed on a small amount of narcotic pain medication. Please do not drive or operate heavy machinery while taking this medication. You should expect the bruising to gradually lessened over the next few weeks. If worsening please return to the ED immediately or follow-up with your primary care provider in one week for recheck. Dragnghia Disclaimer Dragnghia Disclaimer This electronic medical record was generated, in whole or in part, using a voice recognition dictation system. Departure Departure Referrals: NO PCP (PCP) Scripts Hydrocodone/Apap 5-325 (NORCO 5-325 TABLET) 1 Each Tablet 1 TAB PO PRN Q6HRS Y for PAIN, #10 TAB 0 Refills Prov: UDAY MUNSON APRN 03/22/17 UDAY MUNSON APRN Mar 22, 2017 08:12
[2017-03-22 08:30] VITALS: BP 106/53
--- NOTE | 2017-03-22 08:30 | RAD ---
Right hand, 3 views, 03/22/2017: History: Injury, pain No fracture or dislocation is identified. There is mild soft tissue swelling over the dorsum of the hand in the metacarpal region. IMPRESSION: No acute bony abnormality is detected.
[2017-03-22] MEDS ORDERED: HYDR-971 PO (09:00)
== END 2017-03-22 09:06 | disposition home or self-care (01) ==
LOC: ER 07:02
DX: S60.221A Contusion of right hand, initial encounter (principal); G89.29 Other chronic pain; J45.909 Unspecified asthma, uncomplicated; Z87.891 Personal history of nicotine dependence; W23.0XXA Caught, crushed, jammed, or pinched between moving objects, initial encounter; Y93.89 Activity, other specified; Y99.8 Other external cause status; Y92.89 Other specified places as the place of occurrence of the external cause
CPT/HCPCS: 29125; 73130; 99284-25

== ENCOUNTER 2017-04-24 10:16 | Emergency (ER) | payer BC ==
[2017-04-24 11:39] LABS: INFLUENZA A PATIENT NEGATIVE (NEGATIVE); INFLUENZA B PATIENT NEGATIVE (NEGATIVE); OBC FLU VALID
[2017-04-24] MEDS: IPRATRPIUM/ALBUTEROL 0.5/2.5MG 3 ML NEBU. NEB (11:56)
== END 2017-04-24 12:35 | disposition home or self-care (01) ==
LOC: ER 10:16
DX: J06.9 Acute upper respiratory infection, unspecified (principal); G89.29 Other chronic pain; J45.909 Unspecified asthma, uncomplicated
CPT/HCPCS: 87804; 87804-59; 94640; 99284-25; J7620

== ENCOUNTER 2017-05-26 11:28 | Emergency (ER) | payer BC ==
[2017-05-26 12:27] LABS: URINE HCG POC HCG NEGATIVE (Negative)
[2017-05-26 12:29] LABS: BILIRUBIN,URINE NEGATIVE (NEG); CLARITY,URINE CLEAR; COLOR,URINE YELLOW; GLUCOSE,URINE NEGATIVE (NEG); NITRITE,URINE NEGATIVE (NEG); PROTEIN,URINE NEGATIVE (NEG-TRACE); UROBILINOGEN,URINE 0.2 mg/dL (0.2 mg/dL)
[2017-05-26 12:37] LABS: BACTERIA,URINE MODERATE /HPF (0-FEW); RBC,URINE 0 /HPF (0-2); SQUAMOUS EPITHELIAL CELL,UR MOD /LPF
== END 2017-05-26 13:09 | disposition home or self-care (01) ==
LOC: ER 11:28
DX: G89.29 Other chronic pain (principal); M54.5 Low back pain; K08.89 Other specified disorders of teeth and supporting structures; J45.909 Unspecified asthma, uncomplicated
CPT/HCPCS: 81001; 81025; 87086; 99284

== ENCOUNTER 2017-07-29 13:34 | Emergency (ER) | payer BC | END 2017-07-29 14:23 | disposition home or self-care (01) | LOC: ER 13:34 | DX: M25.531 Pain in right wrist (principal); G89.29 Other chronic pain; J45.909 Unspecified asthma, uncomplicated; W19.XXXA Unspecified fall, initial encounter; Y93.89 Activity, other specified; Y99.0 Civilian activity done for income or pay; Y92.89 Other specified places as the place of occurrence of the external cause | CPT/HCPCS: 73110; 99284 ==

== ENCOUNTER 2018-01-24 14:48 | Emergency (ER) | payer SELFPAY ==
[~2018-01-24] VITALS: Ht 157.5 cm; Wt 46.7 kg
[~2018-01-24 14:48] MED LIST changes: +AZIT250T PO; +HYDR-971 PO; +PRED50TA PO; +PROAIR HFA8.5 GM INH
[2018-01-24 15:10] VITALS: BP 107/55
[2018-01-24] MEDS: DEXAMETHASONE SOD PHOS 4 MG/ML VIAL PO ONE (15:30)
--- NOTE | 2018-01-24 15:35 | PHYS DOC ---
Past Medical History Past Medical History: Asthma, Other Additional Past Medical Histor: CHRONIC LOWER BACK PAIN, Irreg HR.(informed in 2015) Past Surgical History: Other Additional Past Surgical Histo: oral Alcohol Use: None Drug Use: None Adult General Chief Complaint Chief Complaint: SORE THROAT [facility] HPI Patient is a 22 year old female presenting with sore throat. She checks in with her son who has had a cough for 2 weeks. She also has a rash she is worried about no fever that she knows of she has had a mild cough. Symptoms are moderate slowly worsening with time has not yet tried much for relief. Review of Systems Review of Systems Constitutional: Denies fever or chills [] Eyes: Denies change in visual acuity, redness, or eye pain [] Yes Cardiovascular: No additional information not addressed in HPI [] GI: Denies abdominal pain, nausea, vomiting, bloody stools or diarrhea [] : Denies dysuria or hematuria [] Musculoskeletal: Denies back pain or joint pain [] All other systems were reviewed and found to be within normal limits, except as documented in this note. Current Medications Current Medications Current Medications Medications (Trade) Dose Ordered Sig/Norbert Start Time Stop Time Status Last Admin Dose Admin Dexamethasone Sodium Phosphate (Decadron) 4 mg 1X ONCE 01/24/18 15:30 01/24/18 15:31 DC Allergies Allergies Allergies Coded Allergies Type Severity Reaction Last Updated Verified No Known Drug Allergies 08/13/14 No Physical Exam Physical Exam Constitutional: Well developed, well nourished, no acute distress, non-toxic appearance. [] HENT: Normocephalic, atraumatic, bilateral external ears normal, oropharynx moist, no oral exudates, nose normal. [] mild erythema of oropharynx no lad. Eyes: PERRLA, EOMI, conjunctiva normal, no discharge. [] Neck: Normal range of motion, no tenderness, supple, no stridor. [] Cardiovascular:Heart rate regular rhythm, no murmur [] Lungs & Thorax: Bilateral breath sounds clear to auscultation [] Abdomen: Bowel sounds normal, soft, no tenderness, no masses, no pulsatile masses. [] Skin: Warm, dry, no erythema, no rash. [] Back: No tenderness, no CVA tenderness. [] Extremities: No tenderness, no cyanosis, no clubbing, ROM intact, no edema. [] Neurologic: Alert and oriented X 3, normal motor function, normal sensory function, no focal deficits noted. [] Psychologic: Affect normal, judgement normal, mood normal. [] Current Patient Data Vital Signs Vital Signs Date Time Temp Pulse Resp B/P (MAP) Pulse Ox O2 Delivery O2 Flow Rate FiO2 01/24/18 15:10 97.9 91 16 107/55 (72) 98 Room Air 97.9 EKG EKG [] Radiology/Procedures Radiology/Procedures [] Course & Med Decision Making Course & Med Decision Making Pertinent Labs and Imaging studies reviewed. (See chart for details) []0/4 centor criteria decadron given, pt is well appearing. no signs of peritonsillar abscess etc. Dragon Disclaimer Dragon Disclaimer This electronic medical record was generated, in whole or in part, using a voice recognition dictation system. Departure Departure Impression: Primary Impression: Sore throat Disposition: HOME, SELF-CARE Condition: STABLE Patient Instructions: Sore Throat, [id number] ISAAC PERLA MD Jan 24, 2018 15:35
== END 2018-01-24 15:37 | disposition home or self-care (01) ==
LOC: ER 14:48
DX: J02.9 Acute pharyngitis, unspecified (principal); J45.909 Unspecified asthma, uncomplicated; G89.29 Other chronic pain
CPT/HCPCS: 99282; J1100

== ENCOUNTER 2018-02-03 08:49 | Emergency (ER) | payer SELFPAY ==
[~2018-02-03] VITALS: Ht 157.5 cm; Wt 45.8 kg
--- NOTE | 2018-02-03 09:26 | PHYS DOC ---
Past Medical History Past Medical History: Asthma, Other Additional Past Medical Histor: CHRONIC LOWER BACK PAIN, Irreg HR.(informed in 2014) Past Surgical History: Other Additional Past Surgical Histo: oral Alcohol Use: None Drug Use: None Adult General Chief Complaint Chief Complaint: SKIN RASH/ABSCESS HPI HPI Patient is a 22 year old female with history of asthma who presents today complaining over rash and sore throat that began 3 weeks ago. Patient states she was seen in the ED a week ago and was given one time dose of steroids which she did not clear her rash. Review of Systems Review of Systems Constitutional: Denies fever or chills [] Eyes: Denies change in visual acuity, redness, or eye pain [] HENT: Reports sore throat. Denies nasal congestion Respiratory: Denies cough or shortness of breath [] Cardiovascular: No additional information not addressed in HPI [] GI: Denies abdominal pain, nausea, vomiting, bloody stools or diarrhea [] : Denies dysuria or hematuria [] Musculoskeletal: Denies back pain or joint pain [] Integument: Reports rash Neurologic: Denies headache, focal weakness or sensory changes [] All other systems were reviewed and found to be within normal limits, except as documented in this note. Allergies Allergies Allergies Coded Allergies Type Severity Reaction Last Updated Verified No Known Drug Allergies 08/13/14 No Physical Exam Physical Exam Constitutional: Well developed, well nourished, no acute distress, non-toxic appearance. [] HENT: Normocephalic, atraumatic, bilateral external ears normal, oropharynx moist, no oral exudates, nose normal. [] Eyes: PERRLA, EOMI, conjunctiva normal, no discharge. [] Neck: Normal range of motion, no tenderness, supple, no stridor. [] Cardiovascular:Heart rate regular rhythm, no murmur [] Lungs & Thorax: Bilateral breath sounds clear to auscultation [] Abdomen: Bowel sounds normal, soft, no tenderness, no masses, no pulsatile masses. [] Skin: Warm, dry, mild amount of erythematous papular rash on neck chest and bilateral upper extremities. Back: No tenderness, no CVA tenderness. [] Extremities: No tenderness, no cyanosis, no clubbing, ROM intact, no edema. [] Neurologic: Alert and oriented X 3, normal motor function, normal sensory function, no focal deficits noted. [] Psychologic: Affect normal, judgement normal, mood normal. [] Current Patient Data Vital Signs Vital Signs Date Time Temp Pulse Resp B/P (MAP) Pulse Ox O2 Delivery O2 Flow Rate FiO2 02/03/18 09:12 98.2 64 18 146/64 (91) 94 Room Air 98.2 EKG EKG [] Radiology/Procedures Radiology/Procedures [] Course & Med Decision Making Course & Med Decision Making Pertinent Labs and Imaging studies reviewed. (See chart for details) This is a 22-year-old female patient presenting to the ED today with a sore throat and rash for three weeks. Negative rapid strep. Patient will be discharged with tapered dose of prednisone. Saltwater gargles recommended. Throat. Zyrtec recommended daily. Also recommended Pepcid. Follow-up with PCP in 1-2 weeks. Dragon Disclaimer Dragon Disclaimer This electronic medical record was generated, in whole or in part, using a voice recognition dictation system. Departure Departure Impression: Primary Impression: Viral pharyngitis Additional Impression: Contact dermatitis Disposition: HOME, SELF-CARE Condition: STABLE Referrals: NO PCP (PCP) SURI VARGAS MD follow up in 2 weeks if rash persists. Patient Instructions: Contact Dermatitis, Viral Pharyngitis Additional Instructions: You were seen for sore throat and a rash. Your strep test is negative. We'll put you on a tapered dose of prednisone, take it until completed. Please follow- up with your primary care doctor or the provided home demonstrator if this rash does not clear after completing of steroids. Also consider taking Zyrtec every day and Pepcid every day until the rash is gone. Scripts Cetirizine Hcl (ZYRTEC) 10 Mg Tablet 1 TAB PO DAILY, #30 TAB 2 Refills Prov: MUTUNGAKIRA MANAGER [employer]EARCH DEVELOPMENT 02/03/18 Famotidine (FAMOTIDINE) 20 Mg Tablet 20 MG PO DAILY, #14 TAB Prov: MUTUNGAKIRA MANAGER [employer] DEVELOPMENT 02/03/18 Prednisone (PREDNISONE ) 10 Mg Tablet 10 MG PO UD for PREDNISONE TAPER, #39 TAB 0 Refills Take 3 tablets by mouth twice a day for 3 days, then take 2 tablets by mouth twice a day for 3 days, then take 1 tablet by mouth twice a day for 3 days, then take 1 tablet by mouth daily x 3 days, then stop. Prov: KIRA ACKERMAN APRN 02/03/18 Problem Qualifiers Additional Impression: Contact dermatitis Contact dermatitis type: unspecified Contact dermatitis trigger: unspecified trigger Qualified Codes: L25.9 - Unspecified contact dermatitis, unspecified cause MARTHAMARIEKIRA APRN Feb 03, 2018 09:26
[2018-02-03] MEDS ORDERED: PRED-220 PO (10:07)
[2018-02-03] MEDS ORDERED: FAMO20TA5 PO (10:07)
[2018-02-03] MEDS ORDERED: CETI10TA22 PO (10:07)
[2018-02-03 11:08] VITALS: BP 129/53
== END 2018-02-03 11:08 | disposition home or self-care (01) ==
LOC: ER 08:49
DX: L25.9 Unspecified contact dermatitis, unspecified cause (principal); J02.8 Acute pharyngitis due to other specified organisms; B97.89 Other viral agents as the cause of diseases classified elsewhere; G89.29 Other chronic pain; J45.909 Unspecified asthma, uncomplicated
CPT/HCPCS: 87070; 87880; 99283

== ENCOUNTER 2018-06-20 11:33 | Emergency (ER) | payer SELFPAY ==
[~2018-06-20] VITALS: Ht 157.5 cm; Wt 45.4 kg
[~2018-06-20 11:33] MED LIST changes: +ALBU2.5V8 INH; +CETI10TA22 PO; +FAMO20TA5 PO; +HYDR-3164 PO; -HYDR-971 PO; -HYDR15SO4 PO; +HYDR15SO6 PO; -PROAIR HFA8.5 GM INH
[2018-06-20 12:01] LABS: BILIRUBIN,URINE NEGATIVE (NEG); CLARITY,URINE CLEAR; COLOR,URINE YELLOW; NITRITE,URINE NEGATIVE (NEG); PROTEIN,URINE NEGATIVE (NEG-TRACE); UROBILINOGEN,URINE 0.2 mg/dL (0.2 mg/dL)
[2018-06-20] MEDS ORDERED: IV NORMAL SALINE 1000ML BAG 1,000 ML IV ONE (12:15)
[2018-06-20] MEDS ORDERED: KETOROLAC 30 MG/ML VIAL. IV ONE (12:15)
[2018-06-20 12:21] LABS: BACTERIA,URINE FEW /HPF (0-FEW); RBC,URINE 0 /HPF (0-2); SQUAMOUS EPITHELIAL CELL,UR MOD /LPF
[2018-06-20 12:27] LABS: BASO % 0 % (0-3); EOS % 0 % (0-3); HEMATOCRIT 38.9 % (36.0-47.0); HEMOGLOBIN 12.9 g/dL (12.0-15.5); LYMPH # 1.3 x10^3/uL (1.0-4.8); LYMPH % 21 % (24-48); MEAN CORPUSCULAR HEMOGLOBIN 31 pg (25-35); MEAN CORPUSCULAR HGB CONC 33 g/dL (31-37); MEAN CORPUSCULAR VOLUME 93 fL (79-100); MONO # 0.3 x10^3/uL (0.0-1.1); MONO % 6 % (0-9); NEUT # 4.4 x10^3uL (1.8-7.7); NEUT % 73 % (31-73); PLATELET COUNT 198 x10^3/uL (140-400); RED CELL DISTRIBUTION WIDTH 12.4 % (11.5-14.5)
[2018-06-20 12:38] LABS: CALCIUM 8.9 mg/dL (8.5-10.1); CREATININE 0.8 mg/dL (0.6-1.0); GFR 88.1; POTASSIUM 3.6 mmol/L (3.5-5.1)
[2018-06-20 12:44] LABS: ALBUMIN 3.8 g/dL (3.4-5.0); ALBUMIN/GLOBULIN RATIO 1.1 (1.0-1.7); TOTAL BILIRUBIN 0.3 mg/dL (0.2-1.0); TOTAL PROTEIN 7.2 g/dL (6.4-8.2)
--- NOTE | 2018-06-20 12:52 | PHYS DOC ---
Past Medical History Past Medical History: Asthma, Other Additional Past Medical Histor: CHRONIC LOWER BACK PAIN, Irreg HR.(informed in 2014) Past Surgical History: Other Additional Past Surgical Histo: oral Alcohol Use: None Drug Use: None Adult General Chief Complaint Chief Complaint: DIZZY/LIGHT HEADED HPI HPI 22-year-old otherwise healthy female presents with a 1-2 day history of general malaise, body aches mild headache and loss of appetite. She states she feels dizzy when she gets up. She denies any fever chills or sweats. She does not think anyone else around her is been sick. She thinks she's had normal urine output over the last 24 hours.[] Review of Systems Review of Systems Constitutional: Denies fever or chills, reports body aches [] Eyes: Denies change in visual acuity, redness, or eye pain [] HENT: Denies nasal congestion or sore throat [] Respiratory: Denies cough or shortness of breath [] Cardiovascular: No additional information not addressed in HPI [] GI: Denies abdominal pain, nausea, vomiting, bloody stools or diarrhea [] : Denies dysuria or hematuria [] Musculoskeletal: Denies back pain or joint pain [] Integument: Denies rash or skin lesions [] Neurologic: Reports headache but denies any lateralizing neurologic weakness[] Endocrine: Denies polyuria or polydipsia [] All other systems were reviewed and found to be within normal limits, except as documented in this note. Current Medications Current Medications Current Medications Medications (Trade) Dose Ordered Sig/Norbert Start Time Stop Time Status Last Admin Dose Admin Ketorolac Tromethamine (Toradol 30mg Vial) 30 mg 1X ONCE 06/20/18 12:15 06/20/18 12:16 DC 06/20/18 12:30 30 MG Sodium Chloride 1,000 ml @ 1,000 mls/hr 1X ONCE 06/20/18 12:15 06/20/18 13:14 06/20/18 12:29 1,000 MLS/HR Allergies Allergies Allergies Coded Allergies Type Severity Reaction Last Updated Verified No Known Drug Allergies 08/13/14 No Physical Exam Physical Exam Constitutional: Well developed, well nourished, no acute distress, appears as if she doesn't feel well but is nontoxic[] HENT: Normocephalic, atraumatic, bilateral external ears normal, oropharynx moist, no oral exudates, nose normal. [] Eyes: PERRLA, EOMI, conjunctiva normal, no discharge. [] Neck: Normal range of motion, no tenderness, supple, no stridor. [] Cardiovascular:Heart rate regular rhythm, no murmur [] Lungs & Thorax: Bilateral breath sounds clear to auscultation [] Abdomen: Bowel sounds normal, soft, no tenderness, no masses, no pulsatile masses. [] Skin: Warm, dry, no erythema, no rash. [] Back: No tenderness, no CVA tenderness. [] Extremities: No tenderness, no cyanosis, no clubbing, ROM intact, no edema. [] Neurologic: Alert and oriented X 3, normal motor function, normal sensory function, no focal deficits noted. [] Psychologic: Affect normal, judgement normal, mood normal. [] Current Patient Data Vital Signs Vital Signs Date Time Temp Pulse Resp B/P (MAP) Pulse Ox O2 Delivery O2 Flow Rate FiO2 06/20/18 11:40 97.5 93 16 134/70 (91) 99 Room Air 97.5 Orthostatic vital signs are normal Lab Values Laboratory Tests Test 06/20/18 11:45 06/20/18 11:52 06/20/18 12:15 06/20/18 12:32 Urine Collection Type Unknown Urine Color Yellow Urine Clarity Clear Urine pH 7.0 Urine Specific Halfway <=1.005 Urine Protein Negative mg/dL (NEG-TRACE) Urine Glucose (UA) 100 mg/dL (NEG) Urine Ketones (Stick) Negative mg/dL (NEG) Urine Blood Negative (NEG) Urine Nitrite Negative (NEG) Urine Bilirubin Negative (NEG) Urine Urobilinogen Dipstick 0.2 mg/dL (0.2 mg/dL) Urine Leukocyte Esterase Negative (NEG) Urine RBC 0 /HPF (0-2) Urine WBC 1-4 /HPF (0-4) Urine Squamous Epithelial Cells Mod /LPF Urine Bacteria Few /HPF (0-FEW) Urine Mucus Slight /LPF POC Urine HCG, Qualitative Hcg negative (Negative) White Blood Count 6.0 x10^3/uL (4.0-11.0) Red Blood Count 4.20 x10^6/uL (3.50-5.40) Hemoglobin 12.9 g/dL (12.0-15.5) Hematocrit 38.9 % (36.0-47.0) Mean Corpuscular Volume 93 fL (79-100) Mean Corpuscular Hemoglobin 31 pg (25-35) Mean Corpuscular Hemoglobin Concent 33 g/dL (31-37) Red Cell Distribution Width 12.4 % (11.5-14.5) Platelet Count 198 x10^3/uL (140-400) Neutrophils (%) (Auto) 73 % (31-73) Lymphocytes (%) (Auto) 21 % (24-48) L Monocytes (%) (Auto) 6 % (0-9) Eosinophils (%) (Auto) 0 % (0-3) Basophils (%) (Auto) 0 % (0-3) Neutrophils # (Auto) 4.4 x10^3uL (1.8-7.7) Lymphocytes # (Auto) 1.3 x10^3/uL (1.0-4.8) Monocytes # (Auto) 0.3 x10^3/uL (0.0-1.1) Eosinophils # (Auto) 0.0 x10^3/uL (0.0-0.7) Basophils # (Auto) 0.0 x10^3/uL (0.0-0.2) Sodium Level 145 mmol/L (136-145) Potassium Level 3.6 mmol/L (3.5-5.1) Chloride Level 107 mmol/L (98-107) Carbon Dioxide Level 27 mmol/L (21-32) Anion Gap 11 (6-14) Blood Urea Nitrogen 10 mg/dL (7-20) Creatinine 0.8 mg/dL (0.6-1.0) Estimated GFR (Cockcroft-Gault) 88.1 BUN/Creatinine Ratio 13 (6-20) Glucose Level 121 mg/dL (70-99) H Calcium Level 8.9 mg/dL (8.5-10.1) Total Bilirubin 0.3 mg/dL (0.2-1.0) Aspartate Amino Transferase (AST) 17 U/L (15-37) Alanine Aminotransferase (ALT) 17 U/L (14-59) Alkaline Phosphatase 64 U/L (46-116) Total Protein 7.2 g/dL (6.4-8.2) Albumin 3.8 g/dL (3.4-5.0) Albumin/Globulin Ratio 1.1 (1.0-1.7) Influenza Type A Antigen Negative (NEGATIVE) Influenza Type B Antigen Negative (NEGATIVE) Laboratory Tests 06/20/18 12:15 Laboratory Tests 06/20/18 12:15 EKG EKG [] Radiology/Procedures Radiology/Procedures [] Course & Med Decision Making Course & Med Decision Making Pertinent Labs and Imaging studies reviewed. (See chart for details) [ED course: Evaluation reveals a 22-year-old female with malaise bodyaches viral type syndrome. She was also dizzy. Her orthostatics were normal. Patient was given IV fluids and some Toradol she felt better after treatment. I've encouraged her to stay hydrated take Tylenol or Motrin as needed for body aches. ] Dragon Disclaimer Dragon Disclaimer This electronic medical record was generated, in whole or in part, using a voice recognition dictation system. Departure Departure Impression: Primary Impression: Malaise and fatigue Additional Impression: Dizziness, nonspecific Disposition: 01 HOME, SELF-CARE Condition: STABLE Referrals: NO PCP (PCP) Patient Instructions: Dizziness, Fatigue Additional Instructions: Return to the emergency department with any new or concerning symptoms Problem Qualifiers CARLO FINLEY DO Jun 20, 2018 12:52
[2018-06-20 13:01] LABS: INFLUENZA A PATIENT NEGATIVE (NEGATIVE); INFLUENZA B PATIENT NEGATIVE (NEGATIVE)
[2018-06-20 13:17] VITALS: BP 104/60
== END 2018-06-20 13:30 | disposition home or self-care (01) ==
LOC: ER 11:33
DX: R42 Dizziness and giddiness (principal); R51 Headache; R53.81 Other malaise; R53.83 Other fatigue; G89.29 Other chronic pain; J45.909 Unspecified asthma, uncomplicated
CPT/HCPCS: 36415; 80053; 81001; 81025; 85025; 87804; 96361; 96374; 99283; J1885; J7030

== ENCOUNTER 2018-12-18 14:55 | Emergency (ER) | payer SELFPAY ==
[~2018-12-18] VITALS: Ht 157.5 cm; Wt 45.4 kg
[2018-12-18 15:26] VITALS: BP 97/55
--- NOTE | 2018-12-18 15:49 | PHYS DOC ---
Past Medical History Past Medical History: Asthma, Other Additional Past Medical Histor: CHRONIC LOWER BACK PAIN, Irreg HR.(informed in 2014) Past Surgical History: Other Additional Past Surgical Histo: oral Alcohol Use: Rarely Drug Use: None Adult General Chief Complaint Chief Complaint: WRIST PAIN HPI HPI Patient is a 23 year old female who presents to the emergency department with complaints of right wrist pain. Patient states about 2 hours ago she fell forward while going up some steps and hurt her right wrist. She denies any head injury, loss of consciousness, nausea, vomiting, or back pain. Patient states she took some ibuprofen prior to arrival. She rates her pain a 7/10 on the pain scale, the pain increases with movement or palpation. Review of Systems Review of Systems Constitutional: Denies fever or chills [] Eyes: Denies change in visual acuity, redness, or eye pain [] Musculoskeletal: Denies back pain; see HPI Integument: Denies rash or skin lesions [] Neurologic: Denies headache, focal weakness or sensory changes [] Complete systems were reviewed and found to be within normal limits, except as documented in this note. Current Medications Current Medications Current Medications Medications (Trade) Dose Ordered Sig/Norbert Start Time Stop Time Status Last Admin Dose Admin Acetaminophen (Tylenol) 1,000 mg 1X ONCE 12/18/18 16:00 12/18/18 16:01 DC 12/18/18 16:15 1,000 MG Allergies Allergies Allergies Coded Allergies Type Severity Reaction Last Updated Verified No Known Drug Allergies 08/13/14 No Physical Exam Physical Exam Constitutional: Well developed, well nourished, no acute distress, non-toxic appearance. [] HENT: Normocephalic, atraumatic, bilateral external ears normal, nose normal. [] Eyes: PERRLA, EOMI, conjunctiva normal, no discharge. [] Neck: Normal range of motion, no stridor. [] Cardiovascular:Heart rate regular rhythm, no murmur [] Lungs & Thorax: Respirations even and unlabored, no retractions, no respiratory distress Skin: Warm, dry, no erythema, no rash; bruising noted to R wrist [] Back: No tenderness Extremities: R wrist: TTP, no cyanosis, no clubbing, ROM limited due to pain, 1+ edema, no obvious deformity Neurologic: Alert and oriented X 3, normal motor function, normal sensory function, no focal deficits noted. [] Psychologic: Affect normal, judgement normal, mood normal. [] Current Patient Data Vital Signs Vital Signs Date Time Temp Pulse Resp B/P (MAP) Pulse Ox O2 Delivery O2 Flow Rate FiO2 12/18/18 15:26 98.2 68 12 97/55 (69) 94 Room Air 98.2 EKG EKG [] Radiology/Procedures Radiology/Procedures PROCEDURE: WRIST 3V RIGHT Three-view right wrist radiographs 12/18/2018 CLINICAL HISTORY: Right wrist pain post fall. PA, lateral and oblique digital radiographs of the right wrist were obtained. No fracture or dislocation right wrist is seen. No radiopaque foreign body is noted. IMPRESSION: No fracture or dislocation of the right wrist is seen. [] Course & Med Decision Making Course & Med Decision Making Pertinent Labs and Imaging studies reviewed. (See chart for details) [] Dragon Disclaimer Dragon Disclaimer This electronic medical record was generated, in whole or in part, using a voice recognition dictation system. Departure Departure Impression: Primary Impression: Wrist pain, right Additional Impression: Contusion of right wrist, initial encounter Disposition: 01 HOME, SELF-CARE Condition: STABLE Referrals: NO PCP (PCP) BERNARDINO MORRISSEY II, MD Patient Instructions: Wrist Pain, [id number] Additional Instructions: Wear the velcro wrist splint that was applied as needed for comfort. Alternate tylenol and Ibuprofen as needed for pain. Follow up with Dr. Morrissey or your primary care doctor if symptoms persist, return to the ER if symptoms worsen. Splinting Splinting : Location: R wrist Pre-Made Type: velcro (wrist splint) Pre-Proc Neuro Vasc Exam: normal Post-Proc Neuro Vasc Exam: normal, unchanged from pre-exam Progress no complications, pt tolerated procedure well. Problem Qualifiers SANDRA ALBRIGHT SLIDE FORMING MACHINE OPERATOR Dec 18, 2018 15:49
[2018-12-18] MEDS ORDERED: ACETAMINOPHEN 500 MG TABLET PO ONE (16:00)
--- NOTE | 2018-12-18 16:06 | RAD ---
Three-view right wrist radiographs 12/18/2018 CLINICAL HISTORY: Right wrist pain post fall. PA, lateral and oblique digital radiographs of the right wrist were obtained. No fracture or dislocation right wrist is seen. No radiopaque foreign body is noted. IMPRESSION: No fracture or dislocation of the right wrist is seen. Electronically signed by: Juancarlos eMadows MD (12/18/2018 4:03 PM) [facility]
== END 2018-12-18 16:41 | disposition home or self-care (01) ==
LOC: ER 14:55
DX: S60.211A Contusion of right wrist, initial encounter (principal); J45.909 Unspecified asthma, uncomplicated; G89.29 Other chronic pain; M54.5 Low back pain; W10.8XXA Fall (on) (from) other stairs and steps, initial encounter; Y93.89 Activity, other specified; Y92.89 Other specified places as the place of occurrence of the external cause; Y99.8 Other external cause status
CPT/HCPCS: 29125; 73110; 99284

== ENCOUNTER 2019-02-24 14:15 | Emergency (ER) | payer SELFPAY ==
[~2019-02-24] VITALS: Ht 157.5 cm; Wt 45.4 kg
[~2019-02-24 14:15] MED LIST changes: +HYDR25TA PO
[2019-02-24 14:59] VITALS: BP 104/63
[2019-02-24] MEDS ORDERED: AMOX875T PO (15:20)
--- NOTE | 2019-02-24 15:20 | PHYS DOC ---
Past Medical History Past Medical History: Asthma, Other Additional Past Medical Histor: CHRONIC LOWER BACK PAIN, Irreg HR.(informed in 2015) Past Surgical History: Other Additional Past Surgical Histo: oral Alcohol Use: Rarely Drug Use: None Adult General Chief Complaint Chief Complaint: EARACHE/EAR PAIN HPI HPI Patient is a 23 year old female patient who presents to the ED today complaining of mild left ear pain that began 2 days ago. Patient denies any fever, coughing and nasal congestion. Denies any exacerbating on getting factors. Review of Systems Review of Systems Constitutional: Denies fever or chills [] Eyes: Denies change in visual acuity, redness, or eye pain [] HENT: Reports left ear pain. Denies nasal congestion or sore throat [] Respiratory: Denies cough or shortness of breath [] Cardiovascular: No additional information not addressed in HPI [] GI: Denies abdominal pain, nausea, vomiting, bloody stools or diarrhea [] : Denies dysuria or hematuria [] Musculoskeletal: Denies back pain or joint pain [] Integument: Denies rash or skin lesions [] Neurologic: Denies headache, focal weakness or sensory changes [] All other systems were reviewed and found to be within normal limits, except as documented in this note. Allergies Allergies Allergies Coded Allergies Type Severity Reaction Last Updated Verified No Known Drug Allergies 08/13/14 No Physical Exam Physical Exam Constitutional: Well developed, well nourished, no acute distress, non-toxic appearance. [] HENT: Normocephalic, atraumatic, bilateral external ears normal, oropharynx moist, no oral exudates, nose normal. Left TM is mildly injected right TM is slightly injected. Eyes: PERRLA, EOMI, conjunctiva normal, no discharge. [] Neck: Normal range of motion, no tenderness, supple, no stridor. [] Cardiovascular:Heart rate regular rhythm, no murmur [] Lungs & Thorax: Bilateral breath sounds clear to auscultation [] Abdomen: Bowel sounds normal, soft, no tenderness, no masses, no pulsatile masses. [] Skin: Warm, dry, no erythema, no rash. [] Back: No tenderness, no CVA tenderness. [] Extremities: No tenderness, no cyanosis, no clubbing, ROM intact, no edema. [] Neurologic: Alert and oriented X 3, normal motor function, normal sensory function, no focal deficits noted. [] Psychologic: Affect normal, judgement normal, mood normal. [] Current Patient Data Vital Signs Vital Signs Date Time Temp Pulse Resp B/P (MAP) Pulse Ox O2 Delivery O2 Flow Rate FiO2 02/24/19 14:59 99.0 82 16 104/63 (77) 100 Room Air 99.0 EKG EKG [] Radiology/Procedures Radiology/Procedures [] Course & Med Decision Making Course & Med Decision Making Pertinent Labs and Imaging studies reviewed. (See chart for details) Patient has bilateral otitis media. Discharged with amoxicillin. Tylenol/Motrin for pain or fever. Follow-up with her PCP in 1-2 weeks. Dragon Disclaimer Dragon Disclaimer This electronic medical record was generated, in whole or in part, using a voice recognition dictation system. Departure Departure Impression: Primary Impression: Otitis media Disposition: 01 HOME, SELF-CARE Condition: STABLE Referrals: NO PCP (PCP) Follow-up with your doctor in 1-2 weeks Patient Instructions: Otitis Media, Adult, [id number] Additional Instructions: You were evaluated in the emergency room for ear infection, please complete your antibiotics. Take Tylenol/Motrin for pain. Follow-up with your doctor in 1-2 weeks. Scripts Amoxicillin (AMOXICILLIN) 875 Mg Tablet 1 TAB PO BID, #20 TAB Prov: KIRA ACKERMAN APRN 02/24/19 Problem Qualifiers Primary Impression: Otitis media Otitis media type: other nonsuppurative Chronicity: acute Laterality: bilateral Recurrence: non-recurrent Qualified Codes: H65.193 - Other acute nonsuppurative otitis media, bilateral KIRA ACKERMAN APRN Feb 24, 2019 15:20
== END 2019-02-24 16:47 | disposition home or self-care (01) ==
LOC: ER 14:15
DX: H65.193 Other acute nonsuppurative otitis media, bilateral (principal); G89.29 Other chronic pain; J45.909 Unspecified asthma, uncomplicated
CPT/HCPCS: 99283

== ENCOUNTER 2019-05-17 12:31 | Emergency (ER) | payer SELFPAY ==
[~2019-05-17] VITALS: Ht 154.9 cm; Wt 45.0 kg
[~2019-05-17 12:31] MED LIST changes: -CETI10TA22 PO; +CETI10TA24 PO
[2019-05-17 12:48] VITALS: BP 109/56
--- NOTE | 2019-05-17 15:17 | PHYS DOC ---
Past Medical History Past Medical History: Asthma, Other Additional Past Medical Histor: CHRONIC LOWER BACK PAIN, Irreg HR.(informed in 2014) Past Surgical History: Other Additional Past Surgical Histo: oral Smoking Status: Current Every Day Smoker Alcohol Use: Rarely Drug Use: None Adult General Chief Complaint Chief Complaint: FEVER HPI HPI Patient is a 23 year old female who presents to the ER with complaints of hot flashes, chills, nasal congestion, and body aches for the last 2 days. Pt states one of her sister's children was recently dx with influenza. Patient denies any cough, shortness of breath, wheezing, chest pain, palpitations, nausea, vomiting, diarrhea, dysuria, hematuria, or increased urinary frequency. She denies any pain at this time. Review of Systems Review of Systems See above Allergies Allergies Allergies Coded Allergies Type Severity Reaction Last Updated Verified No Known Drug Allergies 08/13/14 No Physical Exam Physical Exam Constitutional: Well developed, well nourished, no acute distress, non-toxic appearance. [] HENT: Normocephalic, atraumatic, bilateral external ears normal, bilateral TMs normal, posterior pharynx normal, oropharynx moist, no oral exudates, nose normal. [] Eyes: PERRLA, EOMI, conjunctiva normal, no discharge. [] Neck: Normal range of motion, no tenderness, supple, no stridor. [] Cardiovascular:Heart rate regular rhythm, no murmur [] Lungs & Thorax: Bilateral breath sounds clear to auscultation, Respirations even and unlabored, no retractions, no respiratory distress [] Skin: Warm, dry, no erythema, no rash. [] Back: No tenderness Extremities: No cyanosis, ROM intact, Neurologic: Alert and oriented X 3, no focal deficits noted. [] Psychologic: Affect normal, judgement normal, mood normal. [] Current Patient Data Vital Signs Vital Signs Date Time Temp Pulse Resp B/P (MAP) Pulse Ox O2 Delivery O2 Flow Rate FiO2 05/17/19 12:48 98.5 80 16 109/56 (73) 97 Room Air 98.5 EKG EKG [] Radiology/Procedures Radiology/Procedures [] Course & Med Decision Making Course & Med Decision Making Pertinent Labs and Imaging studies reviewed. (See chart for details) dx: medical screening exam A medical screening exam was performed, patient was found to have no emergent medical condition. The plan of care would've included flu instructions. However, the patient eloped after talking with registration. [] [] Dragon Disclaimer Dragon Disclaimer This electronic medical record was generated, in whole or in part, using a voice recognition dictation system. Departure Departure Impression: Primary Impression: Encounter for medical screening examination Disposition: HOME, SELF-CARE (pt eloped after speaking with registration) Condition: STABLE Referrals: NO PCP (PCP) SANDRA ALBRIGHT AIRCRAFT STRUCTURAL FITTER May 17, 2019 15:17
== END 2019-05-17 13:50 | disposition home or self-care (01) ==
LOC: ER 12:31
DX: N95.1 Menopausal and female climacteric states (principal); R09.81 Nasal congestion; R50.9 Fever, unspecified; J45.909 Unspecified asthma, uncomplicated; G89.29 Other chronic pain; F17.200 Nicotine dependence, unspecified, uncomplicated; Z98.890 Other specified postprocedural states
CPT/HCPCS: 99281